=== PATIENT | female | born 1965 | race Caucasian/White ===

== ENCOUNTER 2018-07-27 08:56 | Emergency (ER) | payer BC ==
[2018-07-27] MEDS ORDERED: ONDANSETRON (ODT) 4 MG TAB ODT (09:28)
[2018-07-27] MEDS ORDERED: KETOROLAC 30 MG INJ IM (09:28)
[2018-07-27] MEDS ORDERED: HYDROCODONE/APAP (5/325) TAB PO (09:30)
[2018-07-27] MEDS: HYDROCODONE/APAP (5/325) TAB PO (09:59)
[2018-07-27] MEDS: KETOROLAC 30 MG INJ IM (09:59)
[2018-07-27 10:09] LABS: ADD UMIC NO; UR ASCORBIC ACID NEGATIVE (NEGATIVE); UR BILIRUBIN (Dip) NEGATIVE (NEGATIVE); UR BLOOD (Dip) NEGATIVE (NEGATIVE); UR CLARITY CLEAR (CLEAR); UR COLOR YELLOW (YELLOW); UR GLUCOSE (Dip) NEGATIVE (NEGATIVE); UR KETONES (Dip) NEGATIVE (NEGATIVE); UR LEUKOCYTE ESTERASE (Dip) NEGATIVE Leu/ul (NEGATIVE); UR NITRITE (Dip) NEGATIVE (NEGATIVE); UR SPECIFIC GRAVITY (Dip) 1.013 (1.003-1.030); UR TOTAL PROTEIN (Dip) NEGATIVE (NEGATIVE); UR UROBILINOGEN (Dip) NEGATIVE (NEGATIVE)
== END 2018-07-27 11:23 | disposition home or self-care (01) ==
LOC: FTE 08:56
DX: M54.2 Cervicalgia (principal); M54.5 Low back pain
CPT/HCPCS: 72040; 81003; 81025; 96372; 99284-25